=== PATIENT | male | born 1995 | race Caucasian/White ===

== ENCOUNTER 2023-02-13 14:01 | Emergency (ER) | payer OTHER, SELFPAY ==
[2023-02-13 14:10] VITALS: BP 133/86; PULSE 81; RESP 16; TEMP 36.8; O2SAT 100
--- NOTE | 2023-02-13 14:17 | ED.EYEPROB ---
HPI - Eye Problem General Chief complaint: Eye Problems Stated complaint: Foreigh Body in Eye Source: patient and RN notes reviewed History of Present Illness HPI Narrative: 27 yo M presents to urgent care with complaints of a FB in his right eye. Pt states about 2 hours IRONER, he believes erinn got a piece of dust or concrete dust in his eye after swiping a concrete statue. Pt states he attempted to irrigate at home without relief. Reports some photophobia and states he began having some blurry vision IRONER. denies wearing contacts. Pt is UTD on his tetanus vaccination. Related Data Allergies Allergy/AdvReac Type Severity Reaction Status Date / Time cephalexin Allergy Unknown Hives Unverified 02/13/23 14:17 Penicillins Allergy Unknown Hives Unverified 02/13/23 14:17 sulfisoxazole Allergy Unknown Hives Unverified 02/13/23 14:17 Review of Systems Review of Systems: CONSTITUTIONAL: Denies fever, chills, or sweats. EYES: Right eye irritation ENT: Denies otalgia and sore throat CARDIOVASCULAR: Denies chest pain, palpitations, or edema. RESPIRATORY: Denies cough or dyspnea. GASTROINTESTINAL: Denies abdominal pain, nausea, vomiting, or diarrhea. GENITOURINARY: Denies dysuria or hematuria. SKIN: Denies rash or itching. MUSCULOSKELETAL: Denies back pain, joint pain, or myalgia. NEUROLOGIC: Denies headache, numbness, or weakness. Pertinent positives per HPI. PMFSH Comments At the time of my signature, I reviewed and agree with the nursing past medical, surgical, social, and family history. There is no relevant family history pertinent to the patient complaint. Exam Narrative: GENERAL: This is a well-nourished, well-developed patient, in no apparent distress. HEAD: normocephalic, atraumatic. EYES: PERRL. Sclera clear/white. Small speck of FB noted on cornea, at the 5:00 position of the pupil. No abrasion noted with Coats lamp exam. EARS: External ears normal, auditory canals clear and without drainage, TMs normal without perforation. Hearing grossly intact. NOSE: External nose normal with no obvious nasal discharge, nares without redness, no rhinorrhea. THROAT: Mucous membranes moist, posterior pharynx clear. NECK: Neck supple, non-tender without lymphadenopathy, masses or thyromegaly. CARDIOVASCULAR: Regular rate and rhythm without murmurs, gallops, or rubs. RESPIRATORY: Clear to auscultation. Breath sounds equal bilaterally. No wheezes, rales, or rhonchi. GASTROINTESTINAL: Abdomen soft, non-tender, nondistended. Bowel sounds are active. No hepato-splenomegaly, or palpable masses. No guarding. SKIN: warm, intact with no suspicious lesions or rash, good texture and turgor. NEURO: awake, alert, and oriented to person, place and time. There were no obvious focal neurologic abnormalities. EXTREMITIES: No clubbing, cyanosis, or edema. No joint tenderness, effusion, or edema noted. BACK: Nontender without deformity or crepitance. No flank tenderness. Course Course Level of Care: Express Care Visit Vital Signs Vital signs: Vital Signs Temperature 98.3 F 02/13/23 14:10 Pulse Rate 81 02/13/23 14:10 Respiratory Rate 16 02/13/23 14:10 Blood Pressure 133/86 02/13/23 14:10 Pulse Oximetry 100 02/13/23 14:10 Oxygen Delivery Room Air 02/13/23 14:10 Temperature 98.3 F 02/13/23 14:10 Pulse Rate 81 02/13/23 14:10 Respiratory Rate 16 02/13/23 14:10 Blood Pressure 133/86 02/13/23 14:10 Pulse Oximetry 100 02/13/23 14:10 Oxygen Delivery Room Air 02/13/23 14:10 Reviewed MDM - Eye Problem MDM Narrative Medical decision making narrative: Pt tolerated 400 cc of NS with danny lens irrigation. Repeat Coats lamp exam shows FB still in place with abrasion surrounding it now. Spoke to [facility] who can have him seen tomorrow morning at 8:40am at the [facility] with an net technical architect. Spoke to Dr. Lawrence, with [facility] ophthalmology, who thought it could be reasonable for pt to wait until tomorrow morning to
== END 2023-02-13 15:54 | disposition home or self-care (01) ==
PROVIDERS: Emergency Provider Nurse Practitioner Family; PCP Physician Assistant
DX: T15.91XA Foreign body on external eye, part unspecified, right eye, initial encounter (principal); X58.XXXA Exposure to other specified factors, initial encounter
CPT/HCPCS: 99203; A9270; G0463; J7030